=== PATIENT | male | born 1970 | race Caucasian/White ===

== ENCOUNTER 2019-07-22 22:40 | Emergency (ER) | payer OTHER ==
[~2019-07-22] VITALS: Ht 185.4 cm; Wt 133.8 kg
--- NOTE | ~2019-07-22 | EKG ---
[place] [address] ELECTROCARDIOGRAM REPORT Name: JESSIE OWENS Room: [facility]#: [id number] Admission: 07/22/19 Attend Phys: Discharge: 07/23/19 Date of : 72 Date of Service: 07/22/19 2318 Report #: [id number] THIS REPORT FOR: cc: Perez Elizalde MD, Dylan MD Epiphany, Epiphany MD ~ THIS REPORT FOR: //name// [facility] ED Test Date: 2019-07-22 Test Time: 23:18:14 Pat Name: JESSIE OWENS Department: Room: Gender: M Spot Billing Clerk: : 1970 Requested By: Janneth Hollins Order Number: [id number] Reading MD: Measurements Intervals [place] Rate: 79 P: 34 WV: 158 QRS: 68 QRSD: 98 T: 9 QT: 363 QTc: 417 Interpretive Statements Sinus rhythm ST elev, probable normal early repol pattern Baseline wander in lead(s) V2 No previous ECG available for comparison [email or web address] By: 17 2318 Epiphany Epiphany, [place] /[facility]
[2019-07-22] MEDS ORDERED: LISINOPRIL2.5 MG PO (23:25)
[2019-07-22] MEDS ORDERED: HYDROCHLOROTH12.5 M2 PO (23:25)
[2019-07-23 00:23] LABS: ABSOLUTE BASOPHILS 0.1 thou/uL (0.0-0.2); ABSOLUTE LYMPHOCYTES 1.9 thou/uL (0.8-5.3); ABSOLUTE NEUTROPHILS 5.4 thou/uL (1.6-8.1); BASOPHILS 0.7 %; EOSINOPHILS 0.5 %; LYMPHOCYTES 22.3 %; MCH 30.3 pg (26.0-34.0); MCHC 34.8 g/dL (28.0-37.0); MCV 87.2 fL (80.0-100.0); MONOCYTES 11.6 %; MPV 8.4 fl. (7.2-11.1); NUCLEATED RBCS 0 /100WBC; PLATELET COUNT* 249 thou/uL (150-400); POLYS 64.9 %; RBC 4.93 mil/uL (4.50-6.00); RDW-CV 13.3 % (10.5-14.5); WBC 8.4 thou/uL (4.0-11.0)
[2019-07-23 00:43] LABS: CALCIUM 8.6 mg/dL (8.5-10.1); CREATININE 0.9 mg/dL (0.6-1.3)
[2019-07-23 00:45] LABS: TOTAL BILIRUBIN 0.4 mg/dL (<0.1-1.0); TOTAL PROTEIN 7.4 g/dL (6.4-8.2)
[2019-07-23 00:52] LABS: URINE BILIRUBIN NEGATIVE (Negative); URINE BLOOD NEGATIVE (Negative); URINE CLARITY CLEAR; URINE COLOR YELLOW; URINE GLUCOSE-RANDOM NEGATIVE (Negative); URINE KETONES NEGATIVE (Negative); URINE LEUKOCYTES-REFLEX NEGATIVE (Negative); URINE NITRITE-REFLEX NEGATIVE (Negative); URINE PROTEIN NEGATIVE (Negative); URINE UROBILINOGEN 0.2 E.U./dl (0.2-1.0)
[2019-07-23 03:04] VITALS: BP 129/76
== END 2019-07-23 03:04 | disposition home or self-care (01) ==
LOC: M.ERS 22:40
PROVIDERS: Personal Emergency Response Attendant
DX: R10.13 Epigastric pain (principal); I10 Essential (primary) hypertension; Z90.49 Acquired absence of other specified parts of digestive tract